=== PATIENT | male | born 1960 | race Caucasian/White ===

== ENCOUNTER 2022-08-25 03:00 | Outpatient (CLI) | payer MEDICAID, SELFPAY ==
--- NOTE | 2022-08-25 12:18 | DI.RAD_ITS ---
Exam(s) XR LUMBAR SPINE COMPLETE EXAM: XR LUMBAR SPINE COMPLETE CLINICAL HISTORY: low back pain, numbness,M54.50. TECHNIQUE: 2D digital imaging was performed. Five views. COMPARISON: No exams were available for comparison FINDINGS: BONES: No fracture or destructive lesion. Vertebral body heights are maintained. Moderate facet hype rtrophy identified L4-5 . This causes slight L4-5 spondylolisthesis. Endplate osteophytes. DISKS: Intervertebral disc spaces are maintained. ALIGNMENT: No scoliosis. SOFT TISSUE: Normal. IMPRESSION: Degenerative changes greatest at the L4-5 facet joints causing mild spondylolisthesis. DATA REPOSITORY: RADIATION DOSE DELIVERED:
== END 2022-08-25 03:20 ==
LOC: DI 03:00
PROVIDERS: PCP Nurse Practitioner Family; Visit Provider Nurse Practitioner Family
DX: M43.16 Spondylolisthesis, lumbar region (principal); M25.78 Osteophyte, vertebrae; M54.50 Low back pain, unspecified
CPT/HCPCS: 72110

== ENCOUNTER 2022-08-25 04:28 | Outpatient (CLI) | payer MEDICAID, SELFPAY ==
[2022-08-25 12:14] LABS: Abs Immature Grans 0.04 10^3/uL (0.0-0.06); Absolute Basophil Count 0.06 10^3/uL (0.0-0.2); Absolute Eosinophil Count 0.22 10^3/uL (0.0-0.7); Absolute Lymphocyte Count 1.34 10^3/uL (1.2-3.4); Absolute Monocyte Count 0.84 10^3/uL (0.1-0.8); Absolute Neutrophil Count 3.78 10^3/uL (1.2-6.7); Eosinophils % 3.5; HCT 42.9 % (40.0-50.0); Immature Grans % 0.6; Lymphocytes % 21.3; MCV 94 fL (80-95); MPV 8.8 fL (8.0-11.0); Monocytes % 13.4; Neutrophils % 60.2; Platelet Count 219 10^3/uL (130-400); RBC 4.55 10^6/uL (4.36-5.78); RDW-SD 44.8 fL; WBC 6.28 10^3/uL (4.4-10.8)
[2022-08-25 12:49] LABS: Folate 7.4 ng/mL (8.6-20.0); Vitamin B12 246 pg/mL (193-986)
[2022-08-26 10:37] LABS: PSA, Screening 1.3 ng/mL (<=4.5)
== END 2022-08-25 04:29 | disposition home or self-care (01) ==
LOC: LOS 04:28
PROVIDERS: PCP Nurse Practitioner Family; Visit Provider Nurse Practitioner Family
DX: N40.0 Benign prostatic hyperplasia without lower urinary tract symptoms; R20.2 Paresthesia of skin
CPT/HCPCS: 36415; 84153; 82607; 82746; 85025

== ENCOUNTER → 2022-11-06 02:36 | Outpatient (CLI) | payer MEDICAID, SELFPAY ==
--- NOTE | 2022-11-06 06:30 | DI.MRI_ITS ---
Exam(s) MR LUMBAR SPINE WO EXAM: MR LUMBAR SPINE WO CLINICAL HISTORY: lumbar back pain worsening with PT,paresthesias bilat low ext,r20.2,m54.50. TECHNIQUE: Multiplanar multisequence MRI of the Lumbar spine was performed. COMPARISON: CR XR LUMBAR SPINE COMPLETE from 08/25/2022 FINDINGS: Conus medullaris is at normal level. There is no evidence of conus mass nor subjacent clumping of in trathecal nerve roots to suggest arachnoiditis. The distal thecal sac appears unremarkable.There is no evidence of Tarlov intrasacral cysts nor other significant findings within the sacral canal Bones:There are no fractures nor ominous osseous lesions in the lumbar vertebral bodies and visualize d sacrum. With respect to the individual levels... T12-L1: Unremarkable L1-2: Normal disc height and signal. No disc herniation nor central canal stenosis.No foraminal steno sis L2-3: Normal disc height. No disc herniation nor central canal stenosis.No foraminal stenosis.No face t arthropathy. L3-4: Normal disc height. Mild symmetrical annular bulging without a dominant disc herniation. Cent ral canal dimensions are lower normal. No foraminal stenosis. Facet joints unremarkable. L4-5: Minimally decreased disc height. There is degenerative anterolisthesis L4 upon L5 due to advanced fac et arthropathy changes. This results in severe central spinal canal stenosis.There is broad pseudo h erniation of the annulus. Prominent bilateral facet arthropathy at this level. There is approximately 6 mm anterior slippage of L4 upon L5. With regards to the exiting neural foramina, there is only mil d bilateral foraminal stenosis, this related to the relatively preserved disc height at this level. L5-S1: Normal disc height and signal. No disc herniation or central canal stenosis. No foraminal st enosis. Facet joints unremarkable. Soft tissues: paraspinal soft tissues appear unremarkable. IMPRESSION: 1. The main findings here at L4-5 level where there is very severe central spinal canal stenosis due to degenerative anterolisthesis of L4 upon L5. There are advanced degenerative changes in both facet joints. No pars defects. Only mild foraminal narrowing bilaterally at this level. DATA REPOSITORY:
== END ==
PROVIDERS: PCP Nurse Practitioner Family; Visit Provider Nurse Practitioner Family
DX: M54.59 Other low back pain (principal); R20.2 Paresthesia of skin
CPT/HCPCS: 72148

== ENCOUNTER → 2022-12-18 00:51 | Outpatient (CLI) | payer MEDICAID, SELFPAY ==
--- NOTE | 2022-12-18 | DI.MRI_ITS ---
Exam(s) MR CERVICAL SPINE WO EXAM: MR CERVICAL SPINE WO CLINICAL HISTORY: GAIT ABNORMALITY R26.9 EVAL FOR CERVICAL STENOSIS TECHNIQUE: Multiplanar multisequence MRI of the cervical spine was performed without intravenous con trast. COMPARISON: No exams were available for comparison FINDINGS: CERVICOMEDULLARY JUNCTION: Intact with no evidence of cerebellar tonsillar ectopia. No obvious abnor mality of the odontoid process. No evidence of Chiari 1 malformation. CERVICAL SPINAL CORD: There is abnormal focal signal in the cervical spinal cord at the lower C4 leve l which is suspicious for myelitis. OSSEOUS:There are no cervical fractures evident. No significant osseous lesions in the cervical vert ebrae. There is no reversal of the cervical curvature. INDIVIDUAL LEVELS: C2-3: Normal disc height. There is central subligamentous annular bulging which indents the anterior thecal sac. Mild central canal stenosis. There is facet joint arthropathy more so left than right at this level. No foraminal stenosis evident at this level. C3-4: Level exhibits mild disc space narrowing. Posteriorly there are bilateral Luschka joint osteop hytes and annular bulging with a central subligamentous disc protrusion which extends posteriorly 3 m m and is approximately 8 mm wide and which indents the thecal sac resulting in moderate central canal stenosis at this level. There are minimal degenerative changes in the facet joints at this level. There is an element of bilateral foraminal stenosis which is related to the Luschka joint osteophytes bilaterally at this level. C4-5: This level exhibits minimal disc space narrowing, anterior osteophytes and small bilateral Lusc hka joint osteophytes posteriorly. There is annular bulging and a superimposed central-right paracen tral disc protrusion which extends posteriorly 4.5 mm and is approximately 8 mm wide resulting in com pression of the thecal sac and cord at this level resulting in central canal stenosis.There is abnorm al signal within the cervical cord at this level. With respect to the exiting neural foramina, there are bilateral Luschka joint osteophytes. There is moderate bilateral foraminal stenosis evident. C5-6: This level exhibits relatively preserved disc height. However, posteriorly there is annular bu lging with central subligamentous disc protrusion indenting the thecal sac and anterior cord, similar to C4-5 and resulting in moderate central canal stenosis. There are small Luschka joint osteophytes at this level. Mild foraminal stenosis on the right side. Moderate foraminal stenosis on the left side. C6-7: This level exhibits normal disc height and signal. No disc herniation or central canal stenosi s seen at this level. There is no obvious facet arthropathy at this level. No significant foraminal stenosis on the left side at this level. There is mild foraminal stenosis on the right side at this level normal disc height and signal. No disc herniation. No central canal stenosis. No foraminal stenosis C7-T1: No disc herniation nor central canal stenosis. No facet arthropathy.No foraminal stenosis. IMPRESSION: 1. Multilevel findings as described above occluding significant central canal stenosis at C3-4, C4-5, and C5-6, levels. There are subligamentous disc protrusions at all these levels. There are also Sonya schka joint osteophytes and an element of foraminal stenosis at these levels as described individuall y above. 2. Some facet arthropathy also noted 3. There is abnormal focal signal in the cervical spinal C4 level consistent with myelitis. There is no evidence of syringomyelia. There is no evidence of cerebellar tonsillar ectopia. DATA REPOSITORY:
== END ==
PROVIDERS: PCP Nurse Practitioner Family; Visit Provider Physician Assistant Medical
DX: M50.021 Cervical disc disorder at C4-C5 level with myelopathy
CPT/HCPCS: 72141

== ENCOUNTER → 2023-01-26 00:36 | Outpatient (CLI) | payer MEDICAID, SELFPAY ==
--- NOTE | 2023-01-26 | DI.MRI_ITS ---
Exam(s) MR THORACIC SPINE WO EXAM: MR THORACIC SPINE WO CLINICAL HISTORY: GAIT ABNORMALITY R26.9. TECHNIQUE: Multiplanar multisequence MRI of the Thoracic spine was performed. COMPARISON: No exams were available for comparison FINDINGS: Bones: The vertebral body heights are well maintained. Alignment is satisfactory. Mild degenerative c hanges are seen throughout the thoracic spine. Cord: The thoracic cord is normal size and signal intensity. No intrinsic cord lesion is present. Soft tissues: Normal. T1-2: No disc herniation or bulge is identified. No central spinal canal or neural foraminal stenosi s. T2-3: No disc herniation or bulge is identified. No central spinal canal or neural foraminal stenosi s. T4-5: There is a small disc bulge at this level. No central spinal canal or neural foraminal stenosi s. T5-6: No disc herniation or bulge is identified. No central spinal canal or neural foraminal stenosis . T6-7: No disc herniation or bulge is identified. No central spinal canal or neural foraminal stenosis . T7-8: There is a small disc bulge at this level. No central spinal canal or neural foraminal stenosi s. T8-9: No disc herniation or bulge is identified. No central spinal canal or neural foraminal stenosis . T9-10: No disc herniation or bulge is identified. No central spinal canal or neural foraminal stenosi s. T10-11:No disc herniation or bulge is identified. No central spinal canal or neural foraminal stenosi s. T11-12: No disc herniation or bulge is identified. No central spinal canal or neural foraminal stenos is. T12-L1: No disc herniations or bulges are present. No central spinal canal or neural foraminal steno sis. IMPRESSION: Mild degenerative changes seen throughout the thoracic spine. Small disc bulges seen at T4-5 and T8- T9. No significant central spinal canal or neural foraminal stenosis is seen. DATA REPOSITORY:
== END ==
PROVIDERS: PCP Nurse Practitioner Family; Visit Provider Physician Assistant Surgical
DX: M51.24 Other intervertebral disc displacement, thoracic region (principal)
CPT/HCPCS: 72146

== ENCOUNTER 2023-02-20 06:04 | Day surgery (SDC) | payer MEDICAID, SELFPAY ==
--- NOTE | 2023-02-19 16:44 | W.PM.DSUDISC ---
Date of service: 02/20/23 Time of Service: 08:03 Discharge Plan Disposition Patient Disposition: Home Condition: Good Discharge Details Reason For Visit: Screening colonoscopy Attending Provider: Ephraim Irene Primary Care Provider: Parveen Bonilla Home Meds and New Rx's Prescriptions: Continued tadalafil 10 mg tablet 20 mg PO DAILY PRN (Reason: sexual activity) Qty: 180 1RF Rx Instructions: administer approximately 30min before sexual activity; do not use more than 1 dose per 24hrs tamsulosin 0.4 mg capsule See Rx Instructions .ROUTE .COMPLEX Qty: 90 4RF Dose Instruction: TAKE ONE CAPSULE BY MOUTH AT BEDTIME Rx Instructions: TAKE ONE CAPSULE BY MOUTH AT BEDTIME Discontinued bisacodyl [Dulcolax (bisacodyl)] 5 mg tablet,delayed release (DR/EC) 5 mg PO ONCE Qty: 4 0RF Rx Instructions: Take per colonoscopy instructions provided by ordering providers office polyethylene glycol 3350 17 gram/dose powder 17 g PO ONCE Qty: 238 0RF Rx Instructions: Take per colonoscopy instructions provided by ordering providers office Discharge Instructions Instructions: Diverticulosis (GEN), Colorectal Polyps (GEN), Diverticulosis Diet (GEN) Additional Instructions: Bruce, we were able to complete your colonoscopy today without any difficulty. I did find a total of 10 more polyps. I removed these all. I will send them all off for testing. Incidentally, you have a small amount of diverticulosis as well. I will attach a little bit of information here regarding typical approaches to diverticular disease. Certainly, if the pathology turns up anything out of the ordinary, I will let you know. Otherwise, we should plan for another colonoscopy in 1 year. 1. If tolerated, consume a soft, low fiber diet for 1-2 days. 2[address] Do not drive, drink alcohol, operate machinery, make critical decisions, or do activities that require coordination or balance for 24 hours. 3. Because air was put into your colon during the procedure, expelling air from your rectum (passing gas or farting) is normal. 4. You may not have a bowel movement for 1-3 days because of the colonoscopy prep. This is normal. 5. Go directly to the emergency room if you notice any of the following: Develop chills (warm to touch), or if you have a thermometer and your temperature is above 101 Difficulty breathing or difficultly swallowing Persistent vomiting Severe abdominal pain, other than gas cramps Severe chest pain Black, tarry stools Any bleeding ? exceeding one tablespoon 6. Call your physician if the site where your intravenous was started becomes red, swollen, painful, and warm to touch. 7. Your physician has reviewed your pre-procedure medications. Please continue to take those medications as previously ordered. You will be given specific information/education regarding any changes to your medications before leaving. Activity:: Activity as Tolerated Diet:: As Tolerated Discharge Orders Discharge Orders: Discharge Order (Routine); Ordered 02/19/23 Ordered By: Ephraim Irene DS: Diagnosis Discharge Diagnosis (1) Screening for colorectal cancer: Status: Acute
--- NOTE | 2023-02-19 16:45 | COLE_ITS ---
Date of service: 02/20/23 Time of Service: 08:04 Colonoscopy Report Date of procedure: 02/20/23 Pre-op diagnosis general: Screening colonoscopy Post-op diagnosis procedure note: other (Colorectal polyps, diverticulosis) Procedure: Colonoscopy with polypectomy Surgeon: Ephraim Irene Anesthesia Type: General:No Airway Estimated blood loss (mL): 20 Pathology: other (Total of 10 polyps from the colon and rectum. Majority around 0.25 cm, largest 0.75 cm in the rectum.) Complications: None Disposition: same day Indications: Bruce is a 62-year-old male with a history of multiple adenomatous polyps. Since he had greater than 10 polyps, he needs to follow-up with yearly screening colonoscopy Prep: Miralax/Dulcolax Procedure Start Time: : Procedure End Time: : Retraction Time: Findings: Multiple, mostly flat polyps from the rectum through the cecum. Scant divertic ulosis Procedure Description: After the induction of monitored anesthetic care, and with the patient in left lateral decubitus position, I began by performing an external anorectal exam.? Perineum and skin were normal, as was the anal verge.? There was no evidence of external hemorrhoids.? Next, I performed a digital rectal exam.? I did not appreciate any abnormal findings.? Next, I advanced a colonoscope into the rectal vault.? I performed retroflexion.? This was normal.? Using insufflation, I then advanced the colonoscope beyond the rectal folds and into the sigmoid colon before advancing towards the cecum.? The scope was noted to be in the cecum by identification of the ileocecal valve and appendiceal orifice.? Just aside from the appendiceal orifice was a 0.25 cm flat polyp. I removed this with cold forceps without any issues. There was minimal bleeding. I then began withdrawing the colonoscope using repeated irrigation as necessary for full evaluation of the colonic mucosa. ?I also encountered polyps spanning from 110 cm from the anus down to 35 cm from the anus. These were all about 0.25 to 0.5 cm. All were flat. All removed with cold forceps. Once the scope was withdrawn to the level of the rectum, great care was taken to examine portions of the rectal folds.? Within the rectal vault or 3 more polyps. This was the largest of all the polyps. 1 of these was 0.75 cm. The other 2 were 0.25 cm. The largest was slightly pedunculated and removed with cold snare polypectomy. The other 2 were removed with cold forceps. There was minimal bleeding at the sites as well. Finally, the scope was withdrawn and the patient was brought to the same-day surgery recovery unit as the anesthetic wore off. ?The findings and instructions were shared with the patient prior to discharge. Gulf Breeze Bowel Prep Gulf Breeze Bowel Prep Right Colon: 3 Left Colon: 2 Transverse Colon: 3 Total Score: 8
[2023-02-20 06:24] VITALS: BP 151/67; PULSE 64; RESP 16; TEMP 36.7; O2SAT 99
[2023-02-20] MEDS: Lactated Ringers 1,000 ML 80 ML IV (06:29)
--- NOTE | 2023-02-20 07:04 | W.ANESPRE ---
General Info Date of Service Date Performed: 02/20/23 Height: 5 ft 9 in Weight: 88.904 kg Body Mass Index (BMI): 28.9 Surgical Procedure: Operation Date: 02/20/23 07:35 Proposed Procedure Side Surgeon juan c Irene MD Meds Allergies and Home Medications Allergies Allergy/AdvReac Type Severity Reaction Status Date / Time No Known Allergies Allergy Verified 02/20/23 06:23 Home Medication Medication Instructions Recorded tadalafil 10 mg tablet 20 mg (2 x 10 mg) PO DAILY PRN 10/06/22 sexual activity #180 tabs tamsulosin 0.4 mg capsule See Rx Instructions .Route 11/07/22 .COMPLEX #90 caps Current Visit Medications: Current Medications Generic Name Dose Route Start Last Admin Trade Name Freq PRN Reason Stop Dose Admin Hyoscyamine Sulfate 0.125 mg 02/19/23 16:47 Hyoscyamine 0.125 Mg Sl/Oral/Chew SL 03/21/23 16:46 DIRECTED PRN Ringer's Solution 1,000 mls @ 80 mls/hr 02/20/23 06:00 02/20/23 06:29 IV 02/20/23 23:59 80 mls/hr INFUSION KHUSHBOO Administration IV Miscellaneous Supplies 1 each 02/20/23 06:00 Iv Access IV 02/20/23 23:59 DIRECTED KHUSHBOO Ondansetron HCl 4 mg 02/19/23 16:47 Ondansetron 4 Mg/2 Ml Vial IVP 03/21/23 16:46 Q4H PRN PRN Nausea / Vomiting Sodium Chloride 0 ml 02/20/23 06:00 Normal Saline Flush 10 Ml Syr IV 02/20/23 23:59 PRN PRN Sodium Chloride 0 ml 02/20/23 06:00 Normal Saline 10 Ml Vial IJ 02/20/23 23:59 DIRECTED PRN Sterile Water 0 ml 02/20/23 06:00 Water,Injection,Sterile 10 Ml Vial IJ 02/20/23 23:59 DIRECTED PRN PFSH Active Problems Active Problems: Problem Status Onset Code Central stenosis of spinal canal M48.00 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 Hypertension I10 Cerumen debris on tympanic membrane of both ears H61.23 Medical History Medical History Basal cell carcinoma Impaired fasting glucose Elevated alanine aminotransferase (ALT) level Cataract Benign prostate hyperplasia Surgical History Surgical History Hx of skin graft History of carpal tunnel release Left Tobacco Smoking/Tobacco Use Status: Former Tobacco Use Passive smoking exposure: Yes Second hand exposure: Yes Alcohol Alcohol Intake: current Alcohol intake frequency: a few times a week Alcohol type: beer Substance Use Substance use: Occasionally Substance use type: marijuana Details: 3 days ago, last dose Vital Signs and Lab Results Vital Signs Most Recent Vital Signs in EMR: Most Recent Vital Signs Temp Pulse Resp BP Pulse Ox 36.7 C 64 16 151/67 H 99 02/20/23 06:24 02/20/23 06:24 02/20/23 06:24 02/20/23 06:24 02/20/23 06:24 Lab Results Blood Type / Crossmatch: No Data to Display Complete Blood Count: No Data to Display Complete Metabolic Panel: No Data to Display Liver Function Panel: No Data to Display Coagulation Panel: No Data to Display Cardiac Panel: No Data to Display Arterial Blood Gas: No Data to Display Venous Blood Gas: No Data to Display Pancreas Panel: No Data to Display Thyroid Panel: No Data to Display Infectious Disease: No Data to Display Blood Cultures: No Data to Display Toxicology Panel: No Data to Display Anesthesia Assessment and Plan Anesthesia History Personal History: No History of Anesthesia Complications Family History: No Family History of Anesthesia Complications Exercise Tolerance Exercise Tolerance: Metabolic Equivalents>4 Pertinent Negatives Pertinent Negatives: No Symptoms of GERD, No Major Cardiovascular Symptoms or Complaints and No Major Pulmonary Symptoms or Complaints Cardiac & Pulmonary Exam Cardiac Exam: Normal S1/S2 Heart Sounds Pulmonary Exam: Clear Bilateral Breath Sounds Implantable Cardiac Device Does patient have a Pacemaker or an ICD?: No Airway Exam Known Difficult Airway: No Mallampati Class: 3 Mouth Opening: Narrow (< 3cm) Thyromental Distance: Greater than 3 cm Facial Hair: Full [place] Neck Range of Motion: Full ROM Neck Circumference: Normal Teeth Condition: Normal Dentition ASA Classification ASA Score: ASA 2 Emergency Case?: No NPO Status NPO Status: NPO Clears >2 hours, Solids >8 hours Anesthesia Plan Resuscitation Status: Full Code Anesthesia Technique: General Anesthesia Airway Planned: Natural Airway Monitors Used: Standard Monitors
[2023-02-20 07:06] VITALS: BMI 28.9
--- NOTE | 2023-02-20 07:26 | BOWEL_PTH ---
PATIENT: Bruce Spann LOC: [facility] U#:[id number] AGE/SX: 62/M ROOM: RE02/20/[address]: Ephraim Irene MD : 1960 BED: DIS: 02/20/2023 SPEC #: [id number] RECD: 02/20/23 11:50 STATUS: ROLANDA RE #: [id number] EZEKIEL: 02/20/23 07:[address]: Ephraim Irene DEPT: Surgical Specimen RECD BY: Catrachita Hall ENTERED: 02/20/23 11:53 SP TYPE: Bowel OTHR DR: Parveen Patel, SOFYA Tissues: 1 - BIOPSY BOWEL 2 - BIOPSY BOWEL 3 - BIOPSY BOWEL 4 - BIOPSY BOWEL 5 - BIOPSY BOWEL 6 - BIOPSY BOWEL 7 - BIOPSY BOWEL 8 - BIOPSY BOWEL Procedures: GROSS AND MICRO LEVEL 4 Comments: [id number]
[2023-02-20 08:00] VITALS: BP 131/77; PULSE 61; RESP 16; TEMP 36.5; O2SAT 98
--- NOTE | 2023-02-20 08:17 | W.ANESPOSTOP ---
Postoperative Evaluation Date, Time and Location Date Performed: 02/20/23 Time Performed: 08:17 Patient Location: Day Surgery Unit Vital Signs Most Recent Imported Vital Signs: Most Recent Vital Signs Temp Pulse Resp BP Pulse Ox 36.5 C 61 16 131/77 98 02/20/23 08:00 02/20/23 08:00 02/20/23 08:00 02/20/23 08:00 02/20/23 08:00 Pain Score Most Recent Pain Score: Most Recent Pain Score Pain Level 0 02/20/23 08:00 Assessment Mental Status: Awake (Alert & Oriented to Patient Baseline) Airway and Respiratory Function: Patent airway with normal (patient baseline) respiratory exam Cardiovascular Function: Hemodynamically Stable Hydration Status: Adequately Hydrated Nausea & Vomiting: No Nausea or Vomiting Pain: Pt. Denies Any Pain Peripheral Nerve Block: Patient did not receive a nerve block
[2023-02-20 08:33] VITALS: BP 149/72; PULSE 54; RESP 18; TEMP 36.6; O2SAT 98
== END 2023-02-20 09:06 | disposition home or self-care (01) ==
LOC: SUR 06:04
PROVIDERS: PCP Nurse Practitioner Family; Visit Provider Surgery
PROC: 0DJD8ZZ Inspection of Lower Intestinal Tract, Via Natural or Artificial Opening Endoscopic (ICD-10-PCS; CPT 45378; principal; 2023-02-20 07:30)
DX: Z12.11 Encounter for screening for malignant neoplasm of colon (principal); D12.3 Benign neoplasm of transverse colon; K57.30 Diverticulosis of large intestine without perforation or abscess without bleeding; I10 Essential (primary) hypertension; Z86.010 Personal history of colon polyps; D12.0 Benign neoplasm of cecum; D12.4 Benign neoplasm of descending colon; D12.7 Benign neoplasm of rectosigmoid junction
CPT/HCPCS: 45385; 45380; 88305; J2001; J2704

== ENCOUNTER 2023-03-16 05:27 | Outpatient (CLI) | payer MEDICAID, SELFPAY ==
[2023-03-18 11:46] LABS: Cotinine <3.0 ng/mL (<3.0); Nicotine <3.0 ng/mL (<3.0)
== END 2023-03-16 05:28 | disposition home or self-care (01) ==
PROVIDERS: PCP Nurse Practitioner Family; Visit Provider Physician Assistant Surgical
DX: M43.16 Spondylolisthesis, lumbar region (principal)
CPT/HCPCS: 36415; 80323

== ENCOUNTER 2023-03-24 12:17 | Outpatient (CLI) | payer MEDICAID, SELFPAY ==
--- NOTE | 2023-03-24 12:15 | RT.EKG_ITS ---
APPROVED REPORT Exam: Resting ECG Reason for Exam: Pre-op examination Patient Location: O HR:63 bpm ECG Measurements Heart Rate 63 AXIS WI 157 P 62 QRSd 107 QRS 34 QT 405 T 43 QTc 415 Conclusion Sinus rhythm...normal P axis, V-rate 50- 99 Normal Electrocardiogram
== END 2023-03-24 12:18 | disposition home or self-care (01) ==
LOC: DI.CM 12:18
PROVIDERS: PCP Nurse Practitioner Family; Visit Provider Nurse Practitioner Family
DX: Z01.818 Encounter for other preprocedural examination (principal)
CPT/HCPCS: 93010

== ENCOUNTER 2023-03-24 18:14 | Outpatient (REF) | payer MEDICAID, SELFPAY ==
[2023-03-24 20:42] LABS: HCT 43.6 % (40.0-50.0); HGB 15.2 g/dL (13.5-17.5); MCH 31.5 pg (27.0-33.0); MCHC 34.9 % (32.0-36.0); MCV 90 fL (80-95); MPV 9.6 fL (8.0-11.0); Platelet Count 210 10^3/uL (130-400); RBC 4.83 10^6/uL (4.36-5.78); RDW 13.2 % (11.8-14.1)
[2023-03-24 20:56] LABS: ALT 48 U/L (16-63); AST 44 U/L (15-37); Albumin 3.8 g/dL (3.4-5.0); Alkaline Phosphatase 79 U/L (46-116); Anion Gap 10.1 mmol/L (3-11); BUN 6 mg/dL (7-18); Bilirubin, Total 0.6 mg/dL (0.2-1.0); CO2 24.9 mmol/L (21.0-32.0); CREATININE 0.6 mg/dL (0.70-1.30); Calcium 8.9 mg/dL (8.5-10.1); Chloride 100 mmol/L (98-107); Estimated GFR 109.14 (mL/min/1.73m2); Glucose 98 mg/dL (74-106); Potassium 4.8 mmol/L (3.5-5.1); Sodium 135 mmol/L (136-145)
[2023-03-25 20:56] LABS: Hepatitis A Antibody IgM Negative (Negative); Hepatitis B Core Antibody Negative (Negative); Hepatitis B surface Ag Negative (Negative); Hepatitis C Ab w Rflx HCV PCR Negative (Negative)
[2023-03-26 08:44] LABS: Hepatitis B Surface Ab Negative
[2023-03-26 08:45] LABS: HBs Antibody, Quant <3.1 mIU/mL (See Note)
== END 2023-03-24 18:15 | disposition home or self-care (01) ==
LOC: LBN 18:14
PROVIDERS: PCP Nurse Practitioner Family; Visit Provider Nurse Practitioner Family
DX: I10 Essential (primary) hypertension (principal); R73.01 Impaired fasting glucose; Z01.818 Encounter for other preprocedural examination; Z01.812 Encounter for preprocedural laboratory examination; Z11.59 Encounter for screening for other viral diseases; Z01.84 Encounter for antibody response examination
CPT/HCPCS: 80053; 85027; 86704; 86706; 86709; 86803; 87340

== ENCOUNTER → 2023-07-29 02:35 | Outpatient (CLI) | payer BC, SELFPAY ==
--- NOTE | 2023-07-29 | DI.RAD_ITS ---
Exam(s) XR HIP RT COMPLETE AP PELVIS EXAM: XR HIP RT COMPLETE AP PELVIS CLINICAL HISTORY: M25.551 Hip pain,Right; for MRI planning. TECHNIQUE: 2D digital imaging was performed. Two views COMPARISON: No exams were available for comparison FINDINGS: BONES: No acute fracture is present. No bony destructive lesion is seen. Hardware noted in lower yuliana mbar spine. The fat heights are noted at the iliac wings. JOINTS: No dislocation present. Mild bilateral hip joint space narrowing. Subchondral cysts noted i n the superior acetabula bilaterally. Mild acetabular spurring. Some sclerosis at the pubic symphys is and inferior SI joints. SOFT TISSUE: Normal. IMPRESSION: Pvpo-qi-mnfldwam degenerative changes of both hips. DATA REPOSITORY: RADIATION DOSE DELIVERED:
== END ==
PROVIDERS: PCP Nurse Practitioner Family; Visit Provider Neurological Surgery
DX: M16.0 Bilateral primary osteoarthritis of hip (principal)
CPT/HCPCS: 73502

== ENCOUNTER → 2023-08-25 01:11 | Outpatient (CLI) | payer BC, SELFPAY ==
--- NOTE | 2023-08-25 | DI.MRI_ITS ---
Exam(s) MR LOWER JOINT RT WO EXAM: MR LOWER JOINT RT WO CLINICAL HISTORY: M25.551 Rt Hip pain TECHNIQUE: Multiplanar multisequence MRI of the hip was performed. COMPARISON: CR XR HIP RT COMPLETE AP PELVIS from 07/29/2023 FINDINGS: EFFUSION: There is a small-moderate size right hip joint effusion.There are no obvious loose intra-ar ticular bodies. MARROW:No evidence of fractures nor avascular necrosis. There are no ominous osseous lesions.There i s no significant osseous excrescence at the femoral head-neck junction to suggest the presence of cam -type ALEXA. HIP JOINT SPACE: There is moderate cartilage loss throughout the right hip joint space.There are mult iple degenerative subarticular cysts in the roof of the right hip acetabulum (front to back) with mil d surrounding bone edema in the acetabular roof. LABRUM: There is signal abnormality consistent with tearing in the superior acetabular labrum. BURSAE: There is no evidence of trochanteric bursitis. There is no evidence of iliopsoas bursitis. TENDONS: Mild gluteus tendonitis. ISCHIAL TUBEROSITY/HAMSTRING: There is signal abnormality within the common hamstrings tendon attachm ent at the right ischial tuberosity consistent with tendinitis-partial tearing. There is no abnormal intraosseous signal at this level within the ischial tuberosity. OTHER: Incidentally noted are significant degenerative changes in the opposite-left hip including sma ll left hip joint effusion. Degenerative changes in the femoral head and what appear to be cystic st ructures above the hip level which may represent extension of paralabral cysts. IMPRESSION: 1. Significant right hip joint degenerate osteoarthritic changes as described above. Small-moderate size right hip joint effusion. No obvious loose intra-articular bodies. 2. Also right hip labral tearing most evident in the superior aspect of the labrum subjacent to the m ultiple degenerative subarticular cysts in the roof of the acetabulum. 3. Tendinitis of ipsilateral right common hamstrings tendon. DATA REPOSITORY:
--- NOTE | 2023-08-25 | DI.MRI_ITS ---
Exam(s) MR LUMBAR SPINE WO/W EXAM: MR LUMBAR SPINE WO/W CLINICAL HISTORY: M79.606 Leg pain. TECHNIQUE: Multiplanar multisequence MRI of the Lumbar spine was performed. COMPARISON: MR MR LUMBAR SPINE WO from 11/06/2022 MR MR THORACIC SPINE WO from 01/26/2023 CR XR HIP RT COMPLETE AP PELVIS from 07/29/2023 FINDINGS: When compared to the MRI scan of 11/06/2022 there has been interval fusion surgery at L4-5 level with posterior fusion rods supported by bilateral intrapedicular screws at these 2 levels. The relations hip of the screws relative to the superior endplates of vertebral bodies these levels appears satisfa ctory and there has been significant decrease in amount of listhesis of L4 upon L5. There is also ar tifact related to an intervertebral disc space device at this level. See below. Conus medullaris is at normal level. There is no evidence of conus mass nor subjacent clumping of in trathecal nerve roots to suggest arachnoiditis. The distal thecal sac appears unremarkable.There is no evidence of Tarlov intrasacral cysts nor other significant findings within the sacral canal Bones:There are no fractures nor ominous osseous lesions in the lumbar vertebral bodies and visualize d sacrum. With respect to the individual levels... T12-L1: Unremarkable L1-2: Normal disc height and signal. No disc herniation nor central canal stenosis.No foraminal steno sis L2-3: Normal disc height. No disc herniation nor central canal stenosis.No foraminal stenosis.No face t arthropathy. L3-4: This is one level above the fusion. There is been no loss of disc height and signal, both of w hich remain normal and there is no disc herniation at this level. There is mild central spinal canal stenosis again noted at this level, unchanged and related to short AP dimensions of the pedicles and mild unchanged symmetrical annular bulging which does not project into the exiting neural foramina a nd there is no evidence of foraminal stenosis on either side at this level. Facet joints appear unch anged. There is no abnormal epidural nor paraspinal collection at this level. No abnormal intraosse ous signal. L4-5: Fusion level. Relationship of the intrapedicular screws to the superior endplates is satisfact ory bilaterally. No abnormal intraosseous signal nor enhancement to suggest osteomyelitis. There evangelista s been removal of posterior osseous elements. The previously present severe central spinal canal azam nosis at this level has improved with the thecal sac at this level appearing unremarkable in size and there is no clumping of nerve roots to suggest arachnoiditis. There is also no evidence of obvious abnormal epidural fluid collection nor paraspinal fluid collection. As described above, the amount o f anterolisthesis of L4 upon L5 has significantly decreased since the surgery. There is an intervert ebral disc space device at this level. There does not appear to be significant herniated disc materi al at this level. L5-S1: Relationship of the intra pedicular screws relative to the superior endplate of L5 are satisfa ctory. No abnormal intraosseous signal to suggest osteomyelitis. Normal disc height and signal. No disc herniation or central canal stenosis. Facet joints exhibit minimal degenerative changes. Ther e is no foraminal stenosis on either side at this level. No abnormal enhancement. No evidence of no rmal epidural nor paraspinal fluid collection. Soft tissues: paraspinal soft tissues appear unremarkable.No abnormal fluid collections evident. IMPRESSION: 1. Compared to the prior MRI scan of 11/06/2022 there has been interval fusion surgery at L4-5 level as described above. Hardware appears satisfactory on the MRI images. There is also an intervertebra l disc space device at this level evident. There has been significant improvement in the previously present listhesis as well as the previously present central spinal canal stenosis at this level. The re is no evidence of abnormal epidural nor paraspinal fluid collection and there is no intraosseous s ignal abnormality at this level nor elsewhere in the lumbosacral spine. 2. No new abnormal findings at the L4-5 fusion with both L3-4 and L5-S1 discs disc spaces appearing u nremarkable. DATA REPOSITORY:
[2023-08-25] MEDS: Gadoterate meglumine 20 ML SYRINGE IVP (08:11)
[2023-08-25] MEDS: Normal Saline Flush 10 ML SYR IJ (08:12)
== END ==
PROVIDERS: PCP Nurse Practitioner Family; Visit Provider Neurological Surgery
DX: M25.551 Pain in right hip (principal); M79.606 Pain in leg, unspecified; Z98.1 Arthrodesis status; M16.11 Unilateral primary osteoarthritis, right hip
CPT/HCPCS: 72158; 73721

== ENCOUNTER 2023-09-10 16:17 | Outpatient (REF) | payer BC, SELFPAY ==
[2023-09-10 21:20] LABS: HCT 41.1 % (40.0-50.0); HGB 14.3 g/dL (13.5-17.5); MCHC 34.8 % (32.0-36.0); MCV 86 fL (80-95); MPV 9.3 fL (8.0-11.0); Platelet Count 331 10^3/uL (130-400); RBC 4.77 10^6/uL (4.36-5.78); RDW 13.1 % (11.8-14.1); RDW-SD 40.9 fL
[2023-09-10 21:26] LABS: ESR 39 mm/hr (0-20)
[2023-09-10 21:43] LABS: ALT 30 U/L (16-63); AST 26 U/L (15-37); Albumin 3.7 g/dL (3.4-5.0); Alkaline Phosphatase 115 U/L (46-116); Anion Gap 9.9 mmol/L (3-11); BUN 6 mg/dL (7-18); Bilirubin, Total 0.63 mg/dL (0.2-1.0); C-Reactive Protein 2.31 mg/dL (<or=0.5); CO2 27.1 mmol/L (21.0-32.0); CREATININE 0.7 mg/dL (0.70-1.30); Calcium 9.1 mg/dL (8.5-10.1); Chloride 99 mmol/L (98-107); Estimated GFR 103.53 (mL/min/1.73m2); Glucose 103 mg/dL (74-106); Potassium 4.8 mmol/L (3.5-5.1); Sodium 136 mmol/L (136-145); Total Protein 7.3 g/dL (6.4-8.2)
[2023-09-11 18:13] LABS: PSA, Screening 1.6 ng/mL (<=4.5)
[2023-09-11 18:57] LABS: HIV-1/2 Ag & Ab Screen Negative (Negative)
[2023-09-14 12:48] LABS: Lyme Ab w Rflx to Lyme Confirm Positive (Negative)
[2023-09-14 16:28] LABS: Lyme IgG Ab Positive (Negative); Lyme IgM Ab Equivocal (Negative)
[2023-09-14 17:24] LABS: Anaplasma phagocytophilum Negative (Negative); B. miyamotoi PCR Negative (Negative); Babesia divergens/MO-1 Negative (Negative); Babesia duncani Negative (Negative); Babesia microti Negative (Negative); Ehrlichia chaffeensis Negative (Negative); Ehrlichia ewingii/canis Negative (Negative); Ehrlichia muris eauclairensis Negative (Negative)
== END 2023-09-10 16:18 | disposition home or self-care (01) ==
LOC: LBN 16:17
PROVIDERS: PCP Nurse Practitioner Family; Visit Provider Nurse Practitioner Family
DX: M25.50 Pain in unspecified joint (principal); Z11.4 Encounter for screening for human immunodeficiency virus [HIV]; Z12.5 Encounter for screening for malignant neoplasm of prostate
CPT/HCPCS: 80053; 84153; 85027; 85652; 86617; 87389; 87798; 86140; 86618

== ENCOUNTER 2023-12-02 07:48 | Day surgery (SDC) | payer BC, SELFPAY ==
--- NOTE | 2023-12-01 21:37 | PDOC.DSDIS_ITS ---
Date of service: 12/02/23 Time of Service: 11:57 Discharge Plan Disposition Patient Disposition: Home Condition: Good Discharge Details Reason For Visit: left inguinal hernia repair Attending Provider: Ephraim Irene Primary Care Provider: Parveen Bonilla Home Meds and New Rx's Prescriptions: New tramadol 50 mg tablet 50 mg PO Q8H PRNQty: 15 0RF Rx Instructions: Take 1 tablet by mouth up to every 8 hours if needed for more severe pain. Continued balance and nature capsule PO DAILY gabapentin 300 mg capsule 300 mg PO DAILY tamsulosin 0.4 mg capsule See Rx Instructions .ROUTE .COMPLEX Qty: 90 4RF Dose Instruction: TAKE ONE CAPSULE BY MOUTH AT BEDTIME Rx Instructions: TAKE ONE CAPSULE BY MOUTH AT BEDTIME buspirone 10 mg tablet 10 mg PO BID PRN (Reason: anxiety) Qty: 60 0RF tadalafil 10 mg tablet 20 mg PO DAILY PRN (Reason: sexual activity) Qty: 180 1RF Rx Instructions: administer approximately 30min before sexual activity; do not use more than 1 dose per 24hrs celecoxib [Celebrex] 100 mg capsule 100 mg PO BID Qty: 180 4RF Rx Instructions: Take one tablet twice daily for pain and inflammation Discharge Instructions Instructions: Groin Hernia Repair (DC) Additional Instructions: Levy, was great seeing you today, and I hope you make a quick and uneventful recovery from your hernia repair. The hernia was quite large, and I hope this provides long-term relief of the discomfort that you have been experiencing. Technically, everything went very smoothly, and I fix the hernia just like we discussed. As we talked about, it is good for you to get up and move around is much as you can in the days to come. Each day should progress a little bit more than the day before. Expect to have quite a bit of pain, especially as the nerve block wears off. Like we talked about beforehand, I did put a prescription in for stronger medication called tramadol that you can chicken picker at the [facility] in [place]. If Tylenol and ibuprofen are not enough to control the pain, then great. But do not be afraid to use the prescription if you are really struggling. I would also expect a fair amount of bruising over the area, and perhaps even down into the scrotum. That is extremely common and nothing to be alarmed about. The more you can keep your hips and scrotum elevated, the quicker the swelling will improve. As I mentioned, keep the lifting less than 5 pounds until I see you in the office, and then we will adjust some of your physical restrictions accordingly. If you need anything, or have any questions at all, please do not hesitate to call. Otherwise, I look forward to seeing you in the office. 1. Resume all of your regular medications. 2. Use heating pads and ice packs over the incision if needed for discomfort. 3. Alternate [id number] Tylenol and ibuprofen every 6 hours for the first 2 days, then use them as needed. Use the prescription for tramadol if needed for more intense pain.. 4. Leave bandage in place for 24 hours, then remove. 5. Shower with warm soapy water. Pat dry. Use a bandaid if needed to protect your clothing, or if you find that the incision is irritated by your clothing 6. No soaking or tub baths until I see you in the office. 7. No heavy lifting until I see you in the office. 8. Call the office (or go directly to the emergency room after hours) if you notice any of the following: Develop chills (warm to touch), or if you have a thermometer and your temperature is above 101 Difficulty breathing or difficultly swallowing Persistent vomiting Any bleeding ? exceeding one tablespoon 6. Call your physician if the site where your intravenous was started becomes red, swollen, painful, and warm to touch. Referrals: Ephraim Irene MD [ [facility] STAFF PHYSICIAN] - (December 14 at 8:15 AM) Activity:: No heavy lifting Remove Dressings/Wound Care:: 24 hours Shower/Bathe:: 24 hours Diet:: As Tolerated Discharge Orders Discharge Orders: Discharge Order (Routine); Ordered 12/01/23 Ordered By: Ephraim Irene DS: Diagnosis Discharge Diagnosis (1) Left inguinal hernia: Status: Acute Asessment and Plan: Routine postoperative follow-up
--- NOTE | 2023-12-01 21:55 | ROE_ITS ---
Date of service: 12/02/23 Time of Service: 12:04 Operative Note Operative Note DATE OF PROCEDURE: 12/02/23 PRE-OP DIAGNOSIS: left inguinal hernia POST-OP DIAGNOSIS: same PROCEDURE: open left inguinal hernia repair with mesh SURGEON: Ephraim Irene AUTOMOTIVE WELDER: Krysten De Dios ANESTHESIA TYPE: General LMA/ETT and Other (inguinal TAP block) Refer to Anesthesia Record ESTIMATED BLOOD LOSS: 25 PATHOLOGY: none sent Patient was transported to: PACU Patient's condition: stable Implants: Bard PerFix light large plug and patch Indications: Levy is a 63-year-old male with a symptomatic left inguinal hernia Findings: Indirect left inguinal hernia Procedure Description: I began by confirming the correct site with the patient. We also had a chance to review the risks of the surgery, and anticipated recovery. Next, we moved back into the operating room. Levy was assisted onto the OR table and supported appropriately. General tracheal anesthesia was initiated. The anesthesia team then provided a left-sided inguinal tap block. The surgical site was then prepped and draped in the usual fashion. I began by making an oblique incision over the left inguinal region. I dissected down through the skin to the deep fascia. Next, I incised the fascia along the length of the inguinal canal to the external ring. I then carefully identified the ilioinguinal nerve and sharply divided. Once this was complete, I bluntly dissected the shelving edge of the inguinal ligament down towards the pubic tubercle. Here, I encircled all cord structures with a Salma drain. Next, I began dissecting the specific cord structures. Great care was taken to spare the vas deferens and the blood supply to the testicle. Next, I isolated the hernia sac from the other inguinal structures. I reduced it back to its normal anatomic position. This was a rather large indirect inguinal hernia. I then used a large mesh plug to obliterate the defect at the internal ring. I fixed in place with interrupted Prolene stitches. Next, I buttressed the posterior floor of the inguinal canal with a large mesh patch. I started by fixing it to the pubic tubercle. Next, I used Prolene sutures to affix it to the shelving edge of the inguinal ligament and the conjoined tendon. Laterally I tacked it to the internal oblique fascia and reconstructed an internal ring without any strain on the cord structures. Once this was complete, I irrigated the surgical field. It appeared hemostatic. I then closed the anterior portion of the fascia to reconstruct the front wall of the inguinal canal. I did this with interrupted Vicryl stitches. Once again, I irrigated the surgical field and inspected for hemostasis. Finally, I approximated the superficial fascia and the deep layers of the skin with absorbable suture. Skin was closed with running subcuticular stitches. Bandages were applied, the patient was awakened and transferred to the recovery unit.
[2023-12-02] VITALS (53 sets, daily range): BP systolic 135–184; BP diastolic 67–100; PULSE 43–59; RESP 9–22; TEMP 36–36.8; O2SAT 90–99; BMI 30.4
--- NOTE | 2023-12-02 08:25 | W.ANESPRE ---
General Info Date of Service Date Performed: 12/02/23 Height: 5 ft 6 in Weight: 85.5 kg Body Mass Index (BMI): 30.4 Surgical Procedure: Operation Date: 12/02/23 09:55 Proposed Procedure Side Surgeon p Herniorrhaphy Inguinal w/Mesh Left Ephraim Irene MD Meds Allergies and Home Medications Allergies Allergy/AdvReac Type Severity Reaction Status Date / Time No Known Allergies Allergy Verified 12/02/23 08:13 Home Medication ?Medication ?Instructions ?Recorded tamsulosin 0.4 mg capsule See Rx Instructions .Route 11/07/22 .COMPLEX #90 caps buspirone 10 mg tablet 10 mg PO BID PRN anxiety #60 tabs 06/03/23 gabapentin 300 mg capsule 300 mg PO DAILY 09/10/23 tadalafil 10 mg tablet 20 mg (2 x 10 mg) PO DAILY PRN 10/02/23 sexual activity #180 tabs celecoxib 100 mg capsule (Celebrex) 100 mg PO BID #180 caps 11/03/23 balance and nature PO DAILY 11/10/23 Current Visit Medications: Current Medications Generic Name Dose Route Start Last Admin Trade Name Freq PRN Reason Stop Dose Admin Acetaminophen 1,000 mg 12/02/23 06:00 Acetaminophen 500 Mg Tab PO 12/02/23 23:59 PREOP KHUSHBOO Gabapentin 300 mg 12/02/23 06:00 Gabapentin 300 Mg Cap PO 12/02/23 23:59 PREOP KHUSHBOO Hydromorphone HCl 0.2 mg 12/01/23 21:56 Hydromorphone 1 Mg/Ml Syr IVP 12/31/23 21:55 Q1H PRN PRN Ringer's Solution 1,000 mls @ 80 mls/hr 12/02/23 06:00 IV 12/02/23 23:59 INFUSION KHUSHBOO Cefazolin Sodium/Dextrose 2 gm in 50 mls @ 100 mls/hr 12/02/23 06:00 Ancef Duplex IVPB 12/02/23 23:59 PREOP KHUSHBOO IV Miscellaneous Supplies 1 each 12/02/23 06:00 Iv Access IV 12/02/23 23:59 DIRECTED KHUSHBOO Sodium Chloride 0 ml 12/02/23 06:00 Normal Saline Flush 10 Ml Syr IV 12/02/23 23:59 PRN PRN Sodium Chloride 0 ml 12/02/23 06:00 Normal Saline 10 Ml Vial IJ 12/02/23 23:59 DIRECTED PRN Sterile Water 0 ml 12/02/23 06:00 Water,Injection,Sterile 10 Ml Vial IJ 12/02/23 23:59 DIRECTED PRN Tramadol HCl 50 mg 12/01/23 21:56 Tramadol 50 Mg Tab PO 12/31/23 21:55 Q6H PRN PRN Pain PFSH Active Problems Active Problems: Problem Status Onset Code Left inguinal hernia Acute K40.90 Degenerative joint disease of left hip Chronic M16.12 Degenerative joint disease of right hip Chronic M16.11 Arthralgia Acute M25.50 Central stenosis of spinal canal Acute M48.00 Vasculogenic erectile dysfunction Acute N52.9 Hypertension Chronic I10 Medical History Medical History Lyme arthritis Pre-op evaluation Sessile serrated polyp of colon (~02/2023) Tubular adenoma of colon (~02/2023) Colon polyp, hyperplastic (~02/2023) Screening for colorectal cancer Cerumen debris on tympanic membrane of both ears Basal cell carcinoma Impaired fasting glucose Elevated alanine aminotransferase (ALT) level Cataract Benign prostate hyperplasia Surgical History Surgical History History of colonoscopy (~02/2023) path sent Hx of skin graft History of carpal tunnel release Left Tobacco Smoking/Tobacco Use Status: Former Tobacco Use Passive smoking exposure: Yes Second hand exposure: Yes Alcohol Alcohol Intake: current Alcohol intake frequency: a few times a week Alcohol type: beer Substance Use Substance use: Daily Substance use type: marijuana Vital Signs and Lab Results Vital Signs Most Recent Vital Signs in EMR: Most Recent Vital Signs Temp Pulse Resp BP Pulse Ox 36.6 C 59 L 16 135/75 98 12/02/23 08:17 12/02/23 08:17 12/02/23 08:17 12/02/23 08:17 12/02/23 08:17 Lab Results Blood Type / Crossmatch: No Data to Display Complete Blood Count: No Data to Display Complete Metabolic Panel: No Data to Display Liver Function Panel: No Data to Display Coagulation Panel: No Data to Display Cardiac Panel: No Data to Display Arterial Blood Gas: No Data to Display Venous Blood Gas: No Data to Display Pancreas Panel: No Data to Display Thyroid Panel: No Data to Display Infectious Disease: No Data to Display Blood Cultures: No Data to Display Toxicology Panel: No Data to Display Imaging and Studies Imaging and Studies Study information below may be from another EMR and interpreted by another provider. Please see original notes in EMR for more complete details. EKG Summary: 03/24/23 Conclusion Sinus rhythm...normal P axis, V-rate 50- 99 Normal Electrocardiogram Anesthesia Assessment and Plan Anesthesia History Personal History: No History of Anesthesia Complications Family History: No Family History of Anesthesia Complications Exercise Tolerance Exercise Tolerance: Metabolic Equivalents>4 Pertinent Negatives Pertinent Negatives: No Symptoms of GERD, No Major Cardiovascular Symptoms or Complaints, No Major Pulmonary Symptoms or Complaints and No History of CVA/TIA Cardiac & Pulmonary Exam Cardiac Exam: Normal S1/S2 Heart Sounds Pulmonary Exam: Clear Bilateral Breath Sounds Implantable Cardiac Device Does patient have a Pacemaker or an ICD?: No Airway Exam Known Difficult Airway: No Mallampati Class: 2 Mouth Opening: Narrow (< 3cm) Thyromental Distance: Greater than 3 cm Neck Range of Motion: Full ROM Neck Circumference: Normal Teeth Condition: Normal Dentition ASA Classification ASA Score: ASA 2 Emergency Case?: No NPO Status NPO Status: NPO Clears >2 hours, Solids >8 hours Anesthesia Plan Resuscitation Status: Full Code Anesthesia Technique: General Anesthesia Airway Planned: Endotracheal Tube Pain Management: Surgeon and patient request nerve block Monitors Used: Standard Monitors and SedLine Preoperative Comments:: Significant PMH: Left inguinal hernia, Central stenosis of spinal canal, Hypertension Plan: GETA - TIVA w/ Propofol infusion adjuncts as necessary. Anterior tap block - Left, Adequate IV access, Sedline
[2023-12-02] MEDS: Lactated Ringers 1,000 ML 80 ML IV (08:29)
[2023-12-02] MEDS: Acetaminophen 500 MG TAB 1000 MG PO (08:33)
[2023-12-02] MEDS: ceFAZolin 2 GM/50 ML BAG IVPB (10:47)
--- NOTE | 2023-12-02 11:02 | W.ANESNERVE ---
Nerve Block Single Injection Procedure Date and Time Date Performed: 12/02/23 Procedure Start: 10:48 Location Where Procedure Performed Procedure Location: Operating Room Procedure Stop: 10:53 Reason Performed: Postoperative Analgesia Requesting Provider: Ephraim Irene Timeout Performed Timeout Performed: Yes Monitoring Used ECG, Blood Pressure, SpO2, ETCO2 and See EMR for corresponding vital signs Sterility Sterility: Hand Hygiene, Surgical Cap, Surgical Mask, Sterile Gloves, Sterile Drape/Sheet, Eye Protection and Chlorhexidine Sedation Given During Procedure Sedation Given (Indicate Dose Given): No Sedation given Patient Mental Status Patient Mental Status: Performed under general anesthesia Nerve Block 1st Nerve Block: Laterality: Left Block Type: TAP Unilateral (anterior TAP) Ultrasound Image Saved?: Yes Needle / Catheter Used: 100mm SonoPlex II Local Anesthetic Bolus (Indicate Dose Given): Bupivacaine 0.25% Dose:: 10ml and Exparel Dose:: 10ml Additives (Indicate Dose Given): None Ultrasound: Sterile probe cover and gel used Nerve Stimulator: Not Used Paresthesia: None Procedure Tolerated: No Complications and Patient tolerated well Procedure Outcome: Successful Performed By: Zana Smallwood Supervised By: Vesna Pulido
[2023-12-02] MEDS: Bupivacaine 0.25% Pres-Free W/EPI 30 ML VIAL (11:04)
[2023-12-02] MEDS: fentaNYL 100 MCG/2 ML VIAL IVP ×2 (12:20→12:28)
[2023-12-02] MEDS: HYDROmorphone 1 MG/ML SYR IVP ×4 (12:37→13:16)
[2023-12-02] MEDS: Ketorolac 30 MG/ML VIAL IVP (13:34)
--- NOTE | 2023-12-02 14:31 | W.ANESPOSTOP ---
Postoperative Evaluation Date, Time and Location Date Performed: 12/02/23 Time Performed: 14:31 Patient Location: Day Surgery Unit Vital Signs Most Recent Imported Vital Signs: Most Recent Vital Signs Temp Pulse Resp BP Pulse Ox 36.2 C L 51 L 16 160/77 H 99 12/02/23 14:27 12/02/23 14:27 12/02/23 14:27 12/02/23 14:27 12/02/23 14:27 Pain Score Most Recent Pain Score: Most Recent Pain Score Pain Level 3 12/02/23 14:27 Assessment Mental Status: Awake (Alert & Oriented to Patient Baseline) Airway and Respiratory Function: Patent airway with normal (patient baseline) respiratory exam Cardiovascular Function: Hemodynamically Stable Hydration Status: Adequately Hydrated Nausea & Vomiting: No Nausea or Vomiting Pain: Pain is tolerable per patient (2-3/10) Peripheral Nerve Block: Regional nerve block not resolved at time of post operative discharge
== END 2023-12-02 14:59 | disposition home or self-care (01) ==
LOC: SUR 07:49
PROVIDERS: PCP Nurse Practitioner Family; Visit Provider Surgery
PROC: (CPT 49505; principal; 2023-12-02 09:45)
DX: K40.90 Unilateral inguinal hernia, without obstruction or gangrene, not specified as recurrent (principal); I10 Essential (primary) hypertension; G89.18 Other acute postprocedural pain
CPT/HCPCS: 49505; 64486; 76942; C1781; C9290; J0665; J0690; J1100; J1171; J1885; J2405; J2704; J3010; J3475

== ENCOUNTER 2024-03-14 19:49 | Emergency (ER) | payer BC, SELFPAY ==
[2024-03-14 19:55] VITALS: BP 190/91; PULSE 67; RESP 15; O2SAT 99
[2024-03-14] MEDS: ceFAZolin 2 GM/50 ML BAG IVPB (20:11)
[2024-03-14] MEDS: Diph,Pertuss(Acell),Tet Vac/Pf 0.5 ML SYR IM (20:12)
--- NOTE | 2024-03-14 20:21 | DI.RAD_ITS ---
Exam(s) XR HAND RT COMPLETE EXAM: XR HAND RT COMPLETE CLINICAL HISTORY: [facility] HAND TRAUMA. TECHNIQUE: 2D digital imaging was performed. Three views. COMPARISON: No exams were available for comparison FINDINGS: BONES: There is a fracture of the distal phalanx of 3rd finger with significant displacement ventrall y. Displacement. There is probable extension to the articular surface. There is a comminuted tuft fracture of the distal phalanx of the 4th finger with bony loss.. No bony destructive lesion is seen . JOINTS: No dislocation present. SOFT TISSUE: Overlying gauze. Large soft tissue lacerations noted of the distal 3rd and 4th fingers. IMPRESSION: Fractures of the distal phalanges of the 3rd and 4th fingers. Large soft tissue lacerations. DATA REPOSITORY: RADIATION DOSE DELIVERED:
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
[2024-03-14] MEDS: Lidocaine 1% Multi-Dose 20 ML VIAL IJ (20:40)
[2024-03-14 21:10] VITALS: BP 143/65; PULSE 70; RESP 14; O2SAT 95
--- NOTE | 2024-03-14 21:12 | NUR.NOTE ---
Pain is controlled post ring block of 3rd and 4th digits of right hand, VS have responded appropriately, FPJ
--- NOTE | 2024-03-14 21:14 | DI.VRAD_ITS ---
PROCEDURE INFORMATION: Exam: XR Right Hand Exam date and time: 03/14/2024 8:13 PM Age: 63 years old Clinical indication: Injury or trauma; Laceration; Middle finger and ring finger; Injury date: 03/14/24; Injury details: Patients hand got caught in saw blade; Right hand trauma TECHNIQUE: Imaging protocol: Radiologic exam of the right hand. Views: 3 or more views. COMPARISON: No relevant prior studies available. FINDINGS: Bones/joints: See Soft tissues finding. Soft tissues: Significant defect in the soft tissues in the distal aspect of the long finger and ring finger. Bony loss in the distal aspect of the ring finger. Displaced fracture in the distal phalanx of the long finger. Comminuted displaced fragments of the distal aspect of the ring finger. Findings consistent with significant tuft fractures from trauma.. Soft tissue swelling in both the ring finger in the long finger IMPRESSION: Significant defect in the soft tissues in the distal aspect of the long finger and ring finger. Bony loss in the distal aspect of the ring finger. Displaced fracture in the distal phalanx of the long finger. Comminuted displaced fragments of the distal aspect of the ring finger. Findings consistent with significant tuft fractures from trauma.. Dictated and Authenticated by: Jose Rowland MD. Orderin Vu Jasmine MD
[2024-03-14 21:52] VITALS: BP 146/66; PULSE 68; RESP 16; O2SAT 96
== END 2024-03-14 22:01 | disposition short-term general hospital (02) ==
PROVIDERS: Emergency Provider Emergency Medicine; PCP Nurse Practitioner Family
DX: S62.632B Displaced fracture of distal phalanx of right middle finger, initial encounter for open fracture (principal); S62.634B Displaced fracture of distal phalanx of right ring finger, initial encounter for open fracture; S68.120A Partial traumatic metacarpophalangeal amputation of right index finger, initial encounter; I10 Essential (primary) hypertension; Z23 Encounter for immunization; W27.0XXA Contact with workbench tool, initial encounter; Y93.89 Activity, other specified
CPT/HCPCS: 90471; 90715; 96365; 99285; 73130; J0690; J2003

== ENCOUNTER 2024-10-04 15:31 | Outpatient (REF) | payer BC, SELFPAY ==
[2024-10-04 13:32] LABS: HCT 42.0 % (40.0-50.0); HGB 14.6 g/dL (13.5-17.5); MCH 31.8 pg (27.0-33.0); MCHC 34.8 % (32.0-36.0); MCV 92 fL (80-95); MPV 9.4 fL (8.0-11.0); Platelet Count 253 10^3/uL (130-400); RBC 4.59 10^6/uL (4.36-5.78); RDW 14.6 % (11.8-14.1); RDW-SD 49.4 fL; WBC 6.68 10^3/uL (4.4-10.8)
[2024-10-04 14:07] LABS: Anion Gap 6.7 mmol/L (3-11); BUN 5 mg/dL (7-18); CO2 28.3 mmol/L (21.0-32.0); Calcium 8.7 mg/dL (8.5-10.1); Calculated LDL 93 mg/dL (<100); Chloride 100 mmol/L (98-107); Cholesterol 152 mg/dL (<200); Estimated GFR 107.80 (mL/min/1.73m2); Glucose 113 mg/dL (74-106); HDL Cholesterol 48 mg/dL (>or=40); Magnesium 1.8 mg/dL (1.8-2.4); Potassium 5.1 mmol/L (3.5-5.1); Sodium 135 mmol/L (136-145); TSH (W/Ref FT4) 1.91 uIU/mL (0.36-3.74); Triglyceride 57 mg/dL (<150); Vitamin B12 273 pg/mL (193-986)
[2024-10-05 09:34] LABS: PSA, Screening 1.1 ng/mL (<=4.5)
== END 2024-10-04 15:32 | disposition home or self-care (01) ==
LOC: LBN 15:31
PROVIDERS: PCP Nurse Practitioner Family; Visit Provider Nurse Practitioner Family
DX: G62.9 Polyneuropathy, unspecified (principal); I10 Essential (primary) hypertension; Z12.5 Encounter for screening for malignant neoplasm of prostate; R53.83 Other fatigue
CPT/HCPCS: 80048; 80061; 84153; 85027; 82607; 83735; 84443

== ENCOUNTER 2024-11-22 10:35 | Day surgery (SDC) | payer BC, SELFPAY ==
--- NOTE | 2024-11-21 15:05 | W.PM.DSUDISC ---
Date of service: 11/22/24 Discharge Plan Disposition Patient Disposition: Home Condition: Good Discharge Details Reason For Visit: Screening colonoscopy Attending Provider: Ephraim Irene Primary Care Provider: Parveen Bonilla Home Meds and New Rx's Prescriptions: Continued balance and nature capsule 1 tab PO DAILY celecoxib [Celebrex] 100 mg capsule 100 mg PO BID Qty: 180 4RF Rx Instructions: Take one tablet twice daily for pain and inflammation gabapentin 300 mg capsule 300 mg PO DAILY Qty: 90 4RF tadalafil 10 mg tablet 10 mg PO DAILY PRN (Reason: sexual activity) Qty: 90 4RF Rx Instructions: administer approximately 30min before sexual activity; do not use more than 1 dose per 24hrs tamsulosin 0.4 mg capsule See Rx Instructions .ROUTE .COMPLEX Qty: 90 4RF Dose Instruction: TAKE ONE CAPSULE BY MOUTH AT BEDTIME Rx Instructions: TAKE ONE CAPSULE BY MOUTH AT BEDTIME Discontinued bisacodyl [Dulcolax (bisacodyl)] 5 mg tablet,delayed release (DR/EC) 5 mg PO ONCE Qty: 4 0RF Rx Instructions: Take per colonoscopy instructions provided by ordering providers office polyethylene glycol 3350 17 gram/dose powder 17 g PO ONCE Qty: 238 0RF Rx Instructions: Take per colonoscopy instructions provided by ordering providers office Discharge Instructions Instructions: Colon polyps, Diverticulosis Additional Instructions: Time, was good seeing you today, and I hope you feel well after the colonoscopy. I did find, and remove 6 polyps today. All of them are relatively small, and appear similar in nature to previous polyps. I will send these to the pathologist just like last time for their review. And as we talked about beforehand, you do in fact have diverticulosis. I do think this is probably contributing to some of your left-sided abdominal discomfort. As I mentioned before the procedure, targeting a diet with about 20 to 30 g of fiber every single day is generally recommended for good colonic health. Most of my patients fall quite short of 20 to 30 g/day even with a fair amount of vegetables incorporated. Metamucil and similar products tend to be the easiest way to supplement this. I think increasing your dose to daily and seeing how you respond is a very reasonable approach. The office will let you know once we have the reports of the polyp analysis. If you need anything else, please call at any time 1. If tolerated, consume a soft, low fiber diet for 1-2 days. 2[address] Do not drive, drink alcohol, operate machinery, make critical decisions, or do activities that require coordination or balance for 24 hours. 3. Because air was put into your colon during the procedure, expelling air from your rectum (passing gas or farting) is normal. 4. You may not have a bowel movement for 1-3 days because of the colonoscopy prep. This is normal. 5. Go directly to the emergency room if you notice any of the following: Develop chills (warm to touch), or if you have a thermometer and your temperature is above 101 Difficulty breathing or difficultly swallowing Persistent vomiting Severe abdominal pain, other than gas cramps Severe chest pain Black, tarry stools Any bleeding ? exceeding one tablespoon 6. Call your physician if the site where your intravenous was started becomes red, swollen, painful, and warm to touch. 7. Your physician has reviewed your pre-procedure medications. Please continue to take those medications as previously ordered. You will be given specific information/education regarding any changes to your medications before leaving. Stand Alone Forms: Anesthesia Discharge Inst., Lindsey Cat (DSU) Activity:: Activity as Tolerated Diet:: As Tolerated Discharge Orders Discharge Orders: Discharge Order (Routine); Ordered 11/21/24 Ordered By: Ephraim Irene DS: Diagnosis Discharge Diagnosis (1) Encounter for screening colonoscopy: Status: Acute Asessment and Plan: Follow-up on polypectomy results
--- NOTE | 2024-11-21 15:05 | W.COLOREPORT ---
Date of service: 11/22/24 Time of Service: 14:44 Colonoscopy Report Date of procedure: 11/22/24 Pre-op diagnosis general: Screening colonoscopy Post-op diagnosis procedure note: other (Colon polyps, diverticulosis) Procedure: Colonoscopy with polypectomy Surgeon: Ephraim Irene Anesthesia Type: General:No Airway Estimated blood loss (mL): 10 Pathology: other (0.25 cm flat rectal polyps x 4 (single specimen) 0.25 cm flat polyp at 80 cm, 0.25 cm flat polyp at 90 cm) Complications: None Disposition: same day Indications: Levy is a 64-year-old male with a history of multiple adenomatous polyps. He is undergoing his next screening colonoscopy Prep: Miralax/Dulcolax Procedure Start Time: 13:55 Procedure End Time: 14:25 Retraction Time: 16 Findings: Diverticulosis, 0.25 cm flat rectal polyps x 4 (single specimen) 0.25 cm flat polyp at 80 cm, 0.25 cm flat polyp at 90 cm Procedure Description: After the induction of anesthesia, and with Levy in left lateral decubitus position, I began by performing an external anorectal exam.? Perineum and skin were normal, as was the anal verge.? Next, I performed a digital rectal exam.? I did not appreciate any abnormal findings.? Next, I advanced a colonoscope into the rectal vault.? I performed retroflexion.? This appeared normal. Within the rectal vault, however, there were 4 polyps. These were distributed through the mid and upper portions. Each was less than 0.25 cm. They were all flat. I removed each of these polyps with cold forceps with minimal bleeding. These were all sent as a single pathologic specimen.? Using i irrigation, I then advanced the colonoscope beyond the rectal folds and into the sigmoid colon before advancing towards the cecum.? The scope was noted to be in the cecum by identification of the ileocecal valve and appendiceal orifice.? I then began withdrawing the colonoscope using repeated irrigation as necessary for full evaluation of the colonic mucosa. Around 90 cm from the anal verge I identified a 0.25 cm polyp. ?It appeared flat in character. ?I was able to remove this with a cold forcep polypectomy. ?I examined the site, and there was minimal bleeding. ?Once this was completed, I continued to withdraw the scope and examine the remainder of the colonic mucosa.? Another polyp was found at 80 cm past the anal verge. This was also about 0.25 cm and flat. This was also removed with cold forceps without issue. There are diverticula in all segments of the colon, but they are most heavily concentrated on the left side. Once the scope was withdrawn to the level of the rectum, great care was taken to examine portions of the rectal folds.? Finally, the scope was withdrawn and the patient was brought to the same-day surgery recovery unit as the anesthetic wore off. ?The findings and instructions were shared with the patient prior to discharge. Mission Bowel Prep Mission Bowel Prep Right Colon: 2 Left Colon: 2 Transverse Colon: 3 Total Score: 7
[2024-11-22 10:51] VITALS: BP 139/72; PULSE 58; RESP 14; TEMP 36.7; O2SAT 99
[2024-11-22] MEDS: Lactated Ringers 1,000 ML 80 ML IV ×2 (11:09→14:24)
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
[2024-11-22 12:31] VITALS: BMI 29.4
--- NOTE | 2024-11-22 14:00 | BOWEL_PTH ---
PATIENT: Bruce Spann LOC: [facility] U#:[id number] AGE/SX: 64/M ROOM: RE11/22/[address]: Ephraim Irene MD : 1960 BED: DIS: 11/22/2024 SPEC #: [id number] RECD: 11/22/24 16:05 STATUS: ROLANDA REDeep #: [id number] EZEKIEL: 11/22/24 14:[address]: Ephraim Irene DEPT: Surgical Specimen RECD BY: Claire Ayoub ENTERED: 11/22/24 16:06 SP TYPE: Bowel OTHR DR: Parveen Patel, SOFYA Tissues: 1 - BIOPSY BOWEL 2 - BIOPSY BOWEL 3 - BIOPSY BOWEL Procedures: GROSS AND MICRO LEVEL 4 Comments: [id number]
[2024-11-22 14:31] VITALS: BP 102/60; PULSE 54; RESP 14; TEMP 36.7; O2SAT 96
--- NOTE | 2024-11-22 14:35 | W.ANESPOSTOP ---
Postoperative Evaluation Date, Time and Location Date Performed: 11/22/24 Time Performed: 14:35 Patient Location: Day Surgery Unit Vital Signs Most Recent Imported Vital Signs: Most Recent Vital Signs Temp Pulse Resp BP Pulse Ox 36.7 C 54 L 14 102/60 96 11/22/24 14:31 11/22/24 14:31 11/22/24 14:31 11/22/24 14:31 11/22/24 14:31 Pain Score Most Recent Pain Score: Most Recent Pain Score Pain Level 0 11/22/24 14:31 Assessment Mental Status: Awake (Alert & Oriented to Patient Baseline) Airway and Respiratory Function: Patent airway with normal (patient baseline) respiratory exam Cardiovascular Function: Hemodynamically Stable Hydration Status: Adequately Hydrated Nausea & Vomiting: No Nausea or Vomiting Pain: Pt. Denies Any Pain Peripheral Nerve Block: Patient did not receive a nerve block
[2024-11-22 15:01] VITALS: BP 144/69; PULSE 53; RESP 18; TEMP 36.2; O2SAT 98
== END 2024-11-22 15:20 | disposition home or self-care (01) ==
LOC: SUR 10:36
PROVIDERS: PCP Nurse Practitioner Family; Visit Provider Surgery
PROC: 0DJD8ZZ Inspection of Lower Intestinal Tract, Via Natural or Artificial Opening Endoscopic (ICD-10-PCS; CPT 45378; principal; 2024-11-22 13:15)
DX: Z12.11 Encounter for screening for malignant neoplasm of colon (principal); D12.4 Benign neoplasm of descending colon; D12.3 Benign neoplasm of transverse colon; K57.30 Diverticulosis of large intestine without perforation or abscess without bleeding; K62.1 Rectal polyp
CPT/HCPCS: 45380; 88305; J2003; J2704